=== PATIENT | male | born 1960 | race African-American/Black ===

== ENCOUNTER 2019-10-28 14:20 | Inpatient (IN) | payer OTHER ==
[2019-10-28 15:12] VITALS: BMI 29.7
--- NOTE | 2019-10-28 16:40 | HP ---
CIWA Score Nausea/Vomitin Muscle Tremors: 3 Anxiety: 3 Agitation: 3 Paroxysmal Sweats: 1-Minimal Palms Moist Orientation: 0-Oriented Tacttile Disturbances: 1-Very Mild Itch/Numbness Auditory Disturbances: 0-None Visual Disturbances: 0-None Headache: 2-Mild CIWA-Ar Total Score: 15 - Admission Criteria [facility]ASAS Guidelines: Admission for Medically Managed Detox: Requires at least one of the followin. CIWA greater than 12 2. Seizures within the past 24 hours 3. Delirium tremens within the past 24 hours 4. Hallucinations within the past 24 hours 5. Acute intervention needed for co occurring medical disorder 6. Acute intervention needed for co occurring psychiatric disorder 7. Severe withdrawal that cannot be handled at a lower level of care (continued vomiting, continued diarrhea, abnormal vital signs) requiring intravenous medication and/or fluids 8. Admitting History and Physical - Admission Chief Complaint: i need help to stop using alcohol History of Present Illness: this 59 years old male with alcohol dependence,seeking detox withdrawal symptom, last detox ACR in the [facility] not complete left facility on Tuesday' multiple admission in detox,last detox complete [facility] syncope alcohol related denied seizure hypertension on med non compliance nicotine dependence 1 pack/day no significant period of sobriety homeless plan for rehab after detox History Source: Patient Limitations to Obtaining History: No Limitations - Past Medical History Cardiovascular: Yes: HTN - Past Surgical History Past Surgical History: Yes: None - Smoking History Smoking history: Current every day smoker Have you smoked in the past 12 months: Yes Aproximately how many cigarettes per day: 20 - Alcohol/Substance Use Hx Alcohol Use: Yes History of Substance Use: reports: Cocaine - Social History Usual Living Arrangement: Yes: Other (homeless) Occupation: unemployed History of Recent Travel: No Other Social History: homeless,smoke 1 pack/day,unemployed Admission ROS [facility] - HPI Chief Complaint: i need help to stop drinking alcohol Allergies/Adverse Reactions: Allergies Allergy/AdvReac Type Severity Reaction Status Date / Time lisinopril Allergy Verified 10/28/19 14:53 History of Present Illness: this 59 years old male with alcohol dependence,cocaine abused,seeking detox, withdrawal symptom, stated was in detox in other facility but not satisfied with the treatment and left the facility, has been on drinking had syncope no seizure smoke 1 pack/day no significant period of sobriety plan for rehab after detox - Ebola screening Have you traveled outside of the country in the last 21 days: No Have you had contact with anyone from an Ebola affected area: No - Review of Systems Constitutional: Loss of Appetite, Malaise, Night Sweats, Changes in sleep, Weakness, Unintentional Wgt. Loss EENT: reports: Nose Congestion Respiratory: reports: No Symptoms reported Cardiac: reports: No Symptoms Reported GI: reports: Nausea, Poor Appetite, Poor Fluid Intake, Abdominal cramping : reports: No Symptoms Reported Musculoskeletal: reports: Back Pain, Muscle Pain Integumentary: reports: Dryness Endocrine: reports: No Symptoms Reported Hematology: reports: No Symptoms Reported Psychiatric: reports: No Sypmtoms Reported, Judgement Intact, Mood/Affect Appropiate, Orientated x3 Other Systems: Reviewed and Negative Patient History - Patient Medical History Hx Anemia: No Hx Asthma: No Hx Chronic Obstructive Pulmonary Disease (COPD): No Hx Cancer: No Hx Cardiac Disorders: No Hx Congestive Heart Failure: No Hx Hypertension: Yes (non compliance with med) Hx Hypercholesterolemia: No Hx Pacemaker: No HX Cerebrovascular Accident: No Hx Seizures: No Hx Dementia: No Hx Diabetes: No Hx Gastrointestinal Disorders: No Hx Liver Disease: No Hx Genitourinary Disorders: No Hx Sexually Transmitted Disorders: No Hx Renal Disease (ESRD): No Hx Thyroid Disease: No Hx Human Immunodeficiency Virus (HIV): No (last 2019 negative) Hx Hepatitis C: No Hx Depression: No Hx Suicide Attempt: No Hx Bipolar Disorder: No Hx Schizophrenia: No Other Medical History: no suicidal,no homicidal - Patient Surgical History Past Surgical History: No - PPD History Previous Implant?: Yes Documented Results: Positive w/o proof Implanted On Prior R Admission?: No PPD to be Administered?: No - Smoking Cessation Smoking history: Current every day smoker Have you smoked in the past 12 months: Yes Aproximately how many cigarettes per day: 20 Cigars Per Day: 0 Hx Chewing Tobacco Use: No Initiated information on smoking cessation: Yes 'Breaking Loose' booklet given: 10/28/19 - Substance & Tx. History Hx Alcohol Use: Yes Hx Substance Use: No Substance Use Type: Alcohol, Cocaine Hx Substance Use Treatment: Yes (last week not completed left the facility) - Substances abused Alcohol Substance route: Oral Frequency: Daily Amount used: 3 pints of vodka Age of first use: 17 Date of last use: 10/28/19 Cocaine Substance route: Smoking Frequency: 1-3 times last 30 days Amount used: 20$ Age of first use: 17 Date of last use: 10/26/19 Admission Physical Exam [facility] - Vital Signs Vital Signs: Vital Signs - 24 hr 10/28/19 15:04 Temperature 98.1 F Pulse Rate 102 H Respiratory 18 Rate Blood Pressure 149/89 - Physical General Appearance: Yes: Moderate Distress, Tremorous, Irritable, Sweating, Anxious HEENTM: Yes: Normal ENT Inspection, KEVIN, Pharynx Normal Respiratory: Yes: Lungs Clear, Normal Breath Sounds, No Respiratory Distress Neck: Yes: Within Normal Limits, Supple Breast: Yes: Within Normal Limits Cardiology: Yes: Within Normal Limits, Regular Rhythm, Regular Rate, S1, S2 Abdominal: Yes: Within Normal Limits, Normal Bowel Sounds, Non Tender, Flat, Soft Genitourinary: Yes: Within Normal Limits Back: Yes: Muscle Spasm Extremities: Yes: Within Normal Limits, Normal Range of Motion, Tremors 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: 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, Fully Oriented, Alert, Motor Strength 5/5 Integumentary: Yes: Dry Lymphatic: Yes: Within Normal Limits - Diagnostic (1) Alcohol dependence with uncomplicated intoxication Current Visit: Yes Status: Acute (2) Alcohol dependence with uncomplicated withdrawal Current Visit: Yes Status: Acute (3) Syncope Current Visit: Yes Status: Acute (4) Essential hypertension Current Visit: Yes Status: Acute (5) Nicotine dependence Current Visit: Yes Status: Acute (6) Cocaine abuse Current Visit: Yes Status: Acute Cleared for Admission [facility] - Detox or Rehab [facility] Level of Care: Medically Managed (ativan regimen) Breathalyzer - Breathalyzer Breathalyzer: 0 Inpatient Rehab Admission - Rehab Decision to Admit Inpatient rehab admission?: No
[2019-10-28] MEDS ORDERED: LORazepam 1 MG TABLET PO PRN (16:56)
[2019-10-28] MEDS ORDERED: MAG HYDROX/AL HYDROX/SIMETH 30 ML UNIT-DOSE CUP PO PRN (16:56)
[2019-10-28] MEDS ORDERED: METHOCARBAMOL 500 MG TABLET PO PRN (16:56)
[2019-10-28] MEDS ORDERED: BISMUTH SUBSALICYLATE 524 MG/30 ML UD PO PRN (16:56)
[2019-10-28] MEDS ORDERED: MENTHOL/PHENOL 1 EACH UD MM PRN (16:56)
[2019-10-28] MEDS ORDERED: MAGNESIUM HYDROX 2400MG/30ML ORAL SUSPENSION 30 ML CUP PO PRN (16:56)
[2019-10-28] MEDS ORDERED: MELATONIN 5 MG TABLETS PO PRN (16:56)
[2019-10-28] MEDS ORDERED: NICOTINE POLACRILEX 2 MG GUM BUC PRN (16:56)
[2019-10-28] MEDS ORDERED: hydrOXYzine PAMOATE 25 MG CAPSULE (FP) PO PRN (16:56)
[2019-10-28] MEDS ORDERED: ACETAMINOPHEN 325 MG TABLET (FP) PO PRN ×2 (16:56)
[2019-10-28] MEDS ORDERED: IBUPROFEN 400 MG TABLET (FP) PO PRN (16:56)
[2019-10-28] MEDS ORDERED: MAGNESIUM CITRATE 300 ML BOTTLE PO PRN (16:56)
[2019-10-28] MEDS: THIAMINE HCL 100 MG TABLET (FP) PO SCH (22:10)
[2019-10-28] MEDS: ATORVASTATIN CA 10 MG TABLET (FP) PO SCH (22:10)
[2019-10-28] MEDS: LORazepam 2 MG TABLET PO SCH (22:10)
[2019-10-29] MEDS: LORazepam 2 MG TABLET PO SCH ×4 (05:31→22:17)
--- NOTE | 2019-10-29 10:02 | PN ---
[facility] CIWA - CIWA Score Nausea/Vomitin-Mild Nausea/No Vomiting Muscle Tremors: 4-Moderate,w/Arms Extend Anxiety: 3 Agitation: 2 Paroxysmal Sweats: 2 Orientation: 0-Oriented Tacttile Disturbances: 1-Very Mild Itch/Numbness Auditory Disturbances: 0-None Visual Disturbances: 0-None Headache: 1-Very Mild CIWA-Ar Total Score: 14 [facility] Progress Note (SOAP) Subjective: 59 years old male admitted on 10/28/19 for alcohol withdrawal sx management treated with ativan detox regimen sitting on the edge of the bed eating breakfast no trouble chewing swallowing speech clearly Objective: 10/29/19 10:10 Vital Signs Temperature 97.5 F L 10/29/19 09:03 Pulse Rate 86 10/29/19 09:03 Respiratory Rate 18 10/29/19 09:03 Blood Pressure 168/97 10/29/19 09:03 O2 Sat by Pulse Oximetry (%) 10/29/19 10:10 lab pending Assessment: 10/29/19 10:11 alcohol withdrawal sx Plan: ativan detox regimen
[2019-10-29] MEDS: amLODIPine BESYLATE 10 MG TABLET (FP) PO SCH (10:06)
[2019-10-29] MEDS: HYDROCHLOROTHIAZIDE 12.5 MG CAPSULE (FP) PO SCH (10:06)
[2019-10-29] MEDS: ASPIRIN COATED 81 MG TABLET.EC PO SCH (10:06)
[2019-10-29] MEDS: PRENATAL VITAMINS W/ FOLIC ACID TABLET (FP) PO SCH (10:06)
[2019-10-29] MEDS: NICOTINE 21 MG/24 HOURS TOPICAL PATCH TD SCH (10:06)
[2019-10-29 10:58] LABS: HEMATOCRIT 37.1 % (35.4-49); HEMOGLOBIN 12.3 GM/dL (11.7-16.9); MCH 32.1 pg (25.7-33.7); MEAN CELL VOLUME 97.4 fl (80-96); MEAN PLT VOLUME 8.8 fl (7.5-11.1); PLATELET COUNT 146 K/MM3 (134-434); RBC 3.81 M/mm3 (4.00-5.60); RDW 17.3 % (11.9-15.9); WHITE BLOOD COUNT 6.1 K/mm3 (4.0-10.0)
[2019-10-29 11:12] LABS: BILIRUBIN,TOTAL 0.5 mg/dL (0.2-1); BLOOD UREA NITROGEN 16.9 mg/dL (7-18); CALCIUM 8.6 mg/dL (8.5-10.1); CREATININE 1.2 mg/dL (0.55-1.3)
[2019-10-29 11:55] LABS: SICKLE CELL SCREEN NEGATIVE (NEGATIVE)
--- NOTE | 2019-10-29 13:43 | EKG ---
Test Reason : Blood Pressure : / mmHG Vent. Rate : 095 BPM Atrial Rate : 095 BPM P-R Int : 148 ms QRS Dur : 084 ms QT Int : 396 ms P-R-T Axes : 055 051 065 degrees QTc Int : 497 ms NORMAL SINUS RHYTHM PROLONGED QT ABNORMAL ECG NO PREVIOUS ECGS AVAILABLE Confirmed by KLEVER HAMILTON MD ([id number]) on 10/29/2019 1:43:26 PM Referred By: SHRUTHI Confirmed By:KLEVER HAMILTON MD
[2019-10-29 19:25] LABS: HYALINE CASTS 5 /lpf (0-8); URINE APPEARANCE CLEAR; URINE BACTERIA 2.6 /hpf (NEGATIVE); URINE BILIRUBIN NEGATIVE (NEGATIVE); URINE COLOR YELLOW; URINE GLUCOSE (UA) NEGATIVE (NEGATIVE); URINE KETONE TRACE (NEGATIVE); URINE LEUK ESTERASE NEGATIVE (NEGATIVE); URINE NITRITE NEGATIVE (NEGATIVE); URINE PROTEIN 1+ (NEGATIVE); URINE RBC 1 /hpf (0-4); URINE WBC 0 /hpf (0-5)
[2019-10-29] MEDS: THIAMINE HCL 100 MG TABLET (FP) PO SCH (22:14)
[2019-10-29] MEDS: ATORVASTATIN CA 10 MG TABLET (FP) PO SCH (22:14)
[2019-10-30] MEDS: LORazepam 1 MG TABLET PO SCH ×4 (05:55→22:14)
[2019-10-30] MEDS: HYDROCHLOROTHIAZIDE 12.5 MG CAPSULE (FP) PO SCH (10:07)
[2019-10-30] MEDS: ASPIRIN COATED 81 MG TABLET.EC PO SCH (10:07)
[2019-10-30] MEDS: PRENATAL VITAMINS W/ FOLIC ACID TABLET (FP) PO SCH (10:07)
[2019-10-30] MEDS: amLODIPine BESYLATE 10 MG TABLET (FP) PO SCH (10:07)
[2019-10-30] MEDS: NICOTINE 21 MG/24 HOURS TOPICAL PATCH TD SCH (10:09)
[2019-10-30] MEDS ORDERED: cloNIDine HCL 0.1 MG TABLET PO PRN (14:37)
--- NOTE | 2019-10-30 14:39 | PN ---
S CIWA - CIWA Score Nausea/Vomitin-Mild Nausea/No Vomiting Muscle Tremors: 3 Anxiety: 2 Agitation: 1-Slight > Activity Paroxysmal Sweats: 2 Orientation: 0-Oriented Tacttile Disturbances: 1-Very Mild Itch/Numbness Auditory Disturbances: 0-None Visual Disturbances: 0-None Headache: 2-Mild CIWA-Ar Total Score: 12 S Progress Note (SOAP) Subjective: 59 years old male admitted on 10/28/19 for alcohol withdrawal sx management treated with ativan detox regimen ambulating on hallway social with peers in day room discuss aftercare with staff Objective: 10/30/19 14:36 Vital Signs Temperature 99.3 F 10/30/19 13:35 Pulse Rate 89 10/30/19 13:35 Respiratory Rate 18 10/30/19 13:35 Blood Pressure 156/95 10/30/19 13:35 O2 Sat by Pulse Oximetry (%) Laboratory Last Values WBC 6.1 K/mm3 (4.0-10.0) 10/29/19 07:50 RBC 3.81 M/mm3 (4.00-5.60) L 10/29/19 07:50 Hgb 12.3 GM/dL (11.7-16.9) 10/29/19 07:50 Hct 37.1 % (35.4-49) 10/29/19 07:50 MCV 97.4 fl (80-96) H 10/29/19 07:50 MCH 32.1 pg (25.7-33.7) 10/29/19 07:50 MCHC 33.0 g/dl (32.0-35.9) 10/29/19 07:50 RDW 17.3 % (11.9-15.9) H 10/29/19 07:50 Plt Count 146 K/MM3 (134-434) 10/29/19 07:50 MPV 8.8 fl (7.5-11.1) 10/29/19 07:50 Sickle Cell Screen Negative (NEGATIVE) 10/29/19 07:50 Sodium 139 mmol/L (136-145) 10/29/19 07:50 Potassium 4.0 mmol/L (3.5-5.1) 10/29/19 07:50 Chloride 105 mmol/L (98-107) 10/29/19 07:50 Carbon Dioxide 27 mmol/L (21-32) 10/29/19 07:50 Anion Gap 7 MMOL/L (8-16) L 10/29/19 07:50 BUN 16.9 mg/dL (7-18) 10/29/19 07:50 Creatinine 1.2 mg/dL (0.55-1.3) 10/29/19 07:50 Est GFR (CKD-EPI)AfAm 76.79 10/29/19 07:50 Est GFR (CKD-EPI)NonAf 66.26 10/29/19 07:50 Random Glucose 92 mg/dL (74-106) 10/29/19 07:50 Calcium 8.6 mg/dL (8.5-10.1) 10/29/19 07:50 Total Bilirubin 0.5 mg/dL (0.2-1) 10/29/19 07:50 AST 45 U/L (15-37) H 10/29/19 07:50 ALT 35 U/L (13-61) 10/29/19 07:50 Alkaline Phosphatase 81 U/L (45-117) 10/29/19 07:50 Total Protein 6.0 g/dl (6.4-8.2) L 10/29/19 07:50 Albumin 3.0 g/dl (3.4-5.0) L 10/29/19 07:50 Urine Color Yellow 10/29/19 11:25 Urine Appearance Clear 10/29/19 11:25 Urine pH 7.0 (5.0-8.0) 10/29/19 11:25 Ur Specific [place] 1.030 (1.010-1.035) 10/29/19 11:25 Urine Protein 1+ (NEGATIVE) H 10/29/19 11:25 Urine Glucose (UA) Negative (NEGATIVE) 10/29/19 11:25 Urine Ketones Trace (NEGATIVE) H 10/29/19 11:25 Urine Blood Negative (NEGATIVE) 10/29/19 11:25 Urine Nitrite Negative (NEGATIVE) 10/29/19 11:25 Urine Bilirubin Negative (NEGATIVE) 10/29/19 11:25 Urine Urobilinogen 1.0 mg/dL (0.2-1.0) 10/29/19 11:25 Ur Leukocyte Esterase Negative (NEGATIVE) 10/29/19 11:25 Urine WBC (Auto) 0 /hpf (0-5) 10/29/19 11:25 Urine RBC (Auto) 1 /hpf (0-4) 10/29/19 11:25 Urine Casts (Auto) 5 /lpf (0-8) 10/29/19 11:25 U Epithel Cells (Auto) 1.0 /HPF (0-5/HPF) 10/29/19 11:25 Urine Bacteria (Auto) 2.6 /hpf (NEGATIVE) 10/29/19 11:25 RPR Titer Nonreactive (NONREACTIVE) 10/29/19 07:50 long history of hypertension increased hctz to 25 mg po daily additional clonidine 0.1mg po q6h prn lab noted 10/30/19 14:38 Assessment: 10/30/19 14:39 alcohol withdrawal sx Plan: ativan regimen
[2019-10-30] MEDS: HYDROCHLOROTHIAZIDE 25 MG TABLET (FP) PO SCH (15:33)
[2019-10-30] MEDS: ATORVASTATIN CA 10 MG TABLET (FP) PO SCH (22:13)
[2019-10-30] MEDS: THIAMINE HCL 100 MG TABLET (FP) PO SCH (22:14)
[2019-10-31] MEDS ORDERED: LORazepam 0.5 MG TABLET PO PRN
[2019-10-31] MEDS ORDERED: LORazepam 0.5 MG TABLET PO SCH (05:00)
[2019-10-31 09:15] VITALS: BP 146/79; PULSE 89; TEMP 97.1
[2019-10-31] MEDS: amLODIPine BESYLATE 10 MG TABLET (FP) PO SCH (10:30)
[2019-10-31] MEDS: HYDROCHLOROTHIAZIDE 25 MG TABLET (FP) PO SCH (10:30)
[2019-10-31] MEDS: ASPIRIN COATED 81 MG TABLET.EC PO SCH (10:30)
[2019-10-31] MEDS: NICOTINE 21 MG/24 HOURS TOPICAL PATCH TD SCH (10:31)
[2019-10-31] MEDS: PRENATAL VITAMINS W/ FOLIC ACID TABLET (FP) PO SCH (10:31)
--- NOTE | 2019-10-31 12:30 | DS ---
[facility] Detox Discharge Summary Admission Date: 10/28/19 Discharge Date: 10/31/19 - History Present History: Alcohol Dependence Additional Comments: 59 years old male admitted on 10/28/19 for alcohol withdrawal sx management treated with ativan detox regimen feeling better today alert oriented x 3 no acute distress ambulating on hallway steady gait speech clearly coherently cardiac s1s2 regular rate rhythm respiratory clear lung bilaterally on auscultation skin warm and dry Pertinent Past History: patient prefers to leave the detox one day earlier than estimated discharge date of 11/01/19 that he needs to visit his deputy probation officer today - Physical Exam Results Vital Signs: Vital Signs Temperature 97.1 F L 10/31/19 09:15 Pulse Rate 89 10/31/19 09:15 Respiratory Rate 18 10/31/19 09:15 Blood Pressure 146/79 10/31/19 09:15 O2 Sat by Pulse Oximetry (%) Pertinent Admission Physical Exam Findings: alcohol withdrawal sx Laboratory Last Values WBC 6.1 K/mm3 (4.0-10.0) 10/29/19 07:50 RBC 3.81 M/mm3 (4.00-5.60) L 10/29/19 07:50 Hgb 12.3 GM/dL (11.7-16.9) 10/29/19 07:50 Hct 37.1 % (35.4-49) 10/29/19 07:50 MCV 97.4 fl (80-96) H 10/29/19 07:50 MCH 32.1 pg (25.7-33.7) 10/29/19 07:50 MCHC 33.0 g/dl (32.0-35.9) 10/29/19 07:50 RDW 17.3 % (11.9-15.9) H 10/29/19 07:50 Plt Count 146 K/MM3 (134-434) 10/29/19 07:50 MPV 8.8 fl (7.5-11.1) 10/29/19 07:50 Sickle Cell Screen Negative (NEGATIVE) 10/29/19 07:50 Sodium 139 mmol/L (136-145) 10/29/19 07:50 Potassium 4.0 mmol/L (3.5-5.1) 10/29/19 07:50 Chloride 105 mmol/L (98-107) 10/29/19 07:50 Carbon Dioxide 27 mmol/L (21-32) 10/29/19 07:50 Anion Gap 7 MMOL/L (8-16) L 10/29/19 07:50 BUN 16.9 mg/dL (7-18) 10/29/19 07:50 Creatinine 1.2 mg/dL (0.55-1.3) 10/29/19 07:50 Est GFR (CKD-EPI)AfAm 76.79 10/29/19 07:50 Est GFR (CKD-EPI)NonAf 66.26 10/29/19 07:50 Random Glucose 92 mg/dL (74-106) 10/29/19 07:50 Calcium 8.6 mg/dL (8.5-10.1) 10/29/19 07:50 Total Bilirubin 0.5 mg/dL (0.2-1) 10/29/19 07:50 AST 45 U/L (15-37) H 10/29/19 07:50 ALT 35 U/L (13-61) 10/29/19 07:50 Alkaline Phosphatase 81 U/L (45-117) 10/29/19 07:50 Total Protein 6.0 g/dl (6.4-8.2) L 10/29/19 07:50 Albumin 3.0 g/dl (3.4-5.0) L 10/29/19 07:50 Urine Color Yellow 10/29/19 11:25 Urine Appearance Clear 10/29/19 11:25 Urine pH 7.0 (5.0-8.0) 10/29/19 11:25 Ur Specific [place] 1.030 (1.010-1.035) 10/29/19 11:25 Urine Protein 1+ (NEGATIVE) H 10/29/19 11:25 Urine Glucose (UA) Negative (NEGATIVE) 10/29/19 11:25 Urine Ketones Trace (NEGATIVE) H 10/29/19 11:25 Urine Blood Negative (NEGATIVE) 10/29/19 11:25 Urine Nitrite Negative (NEGATIVE) 10/29/19 11:25 Urine Bilirubin Negative (NEGATIVE) 10/29/19 11:25 Urine Urobilinogen 1.0 mg/dL (0.2-1.0) 10/29/19 11:25 Ur Leukocyte Esterase Negative (NEGATIVE) 10/29/19 11:25 Urine WBC (Auto) 0 /hpf (0-5) 10/29/19 11:25 Urine RBC (Auto) 1 /hpf (0-4) 10/29/19 11:25 Urine Casts (Auto) 5 /lpf (0-8) 10/29/19 11:25 U Epithel Cells (Auto) 1.0 /HPF (0-5/HPF) 10/29/19 11:25 Urine Bacteria (Auto) 2.6 /hpf (NEGATIVE) 10/29/19 11:25 RPR Titer Nonreactive (NONREACTIVE) 10/29/19 07:50 lab noted - Treatment Hospital Course: Detox Protocol Followed, Detoxed Safely, Responded well, Discharged Condition Good, Rehab Referral Accepted Patient has Accepted a Rehab Referral to: community support approach - Medication Discharge Medications: Ambulatory Orders Amlodipine Besylate 10 mg PO DAILY 10/28/19 Aspirin [Aspirin EC] 81 mg PO DAILY 10/28/19 Atorvastatin Ca [Lipitor] 10 mg PO HS 10/28/19 Hydrochlorothiazide [Hctz -] 12.5 mg PO DAILY 10/28/19 - Diagnosis (1) Alcohol dependence with uncomplicated intoxication Status: Acute (2) Essential hypertension Status: Chronic (3) Nicotine dependence Status: Acute Qualifiers: Nicotine product type: cigarettes Substance use status: in withdrawal Qualified Code(s): F17.213 - Nicotine dependence, cigarettes, with withdrawal - AMA Did Patient Leave Against Medical Advice: No CIWA Score - CIWA Score Nausea/Vomitin-No Nausea/No Vomiting Muscle Tremors: 2 Anxiety: 1-Mildly Anxious Agitation: 0-Normal Activity Paroxysmal Sweats: 1-Minimal Palms Moist Orientation: 0-Oriented Tacttile Disturbances: 1-Very Mild Itch/Numbness Auditory Disturbances: 0-None Visual Disturbances: 0-None Headache: 2-Mild CIWA-Ar Total Score: 7
[2019-11-01] MEDS ORDERED: LORazepam 0.5 MG TABLET PO ONE (05:00)
== END 2019-10-31 10:44 | disposition home or self-care (01) | DRG 774 ==
LOC: YASAS 14:20 → Y3N 17:14
PROVIDERS: ADMIT Allergy & Immunology; ATTEND Allergy & Immunology
PROC: HZ2ZZZZ Detoxification Services for Substance Abuse Treatment (ICD-10-PCS; principal; 2019-10-28)
DX: F10.230 Alcohol dependence with withdrawal, uncomplicated (principal); F10.220 Alcohol dependence with intoxication, uncomplicated; F14.10 Cocaine abuse, uncomplicated; F17.213 Nicotine dependence, cigarettes, with withdrawal; I10 Essential (primary) hypertension; R55 Syncope and collapse; Z59.0 Homelessness; Z88.8 Allergy status to other drugs, medicaments and biological substances
CPT/HCPCS: 36415; 71046-TC-FY; 80053; 81003; 85027; 85660; 86593; 93005; 93010; J0735

== ENCOUNTER 2023-03-25 12:16 | Inpatient (IN) | payer OTHER ==
[2023-03-25 13:55] VITALS: BMI 26.6
[2023-03-25] MEDS ORDERED: COLLOIDAL OATMEAL 1 BAR EACH TP PRN (14:45)
[2023-03-25] MEDS ORDERED: IBUPROFEN 600 MG TABLET (FP) PO PRN (14:45)
[2023-03-25] MEDS ORDERED: BENZONATATE 200 MG CAPSULE PO PRN (14:45)
[2023-03-25] MEDS ORDERED: P-EPHED 60MG/TRIPROLIDI 2.5MG TABLET PO PRN (14:45)
[2023-03-25] MEDS ORDERED: POLYETHYLENE GLYCOL (HEALTHYLAX) 3350 17 GM PACKET PO PRN (14:45)
[2023-03-25] MEDS ORDERED: MAGNESIUM HYDROX 2400MG/30ML ORAL SUSPENSION 30 ML CUP PO PRN (14:45)
[2023-03-25] MEDS ORDERED: ACETAMINOPHEN 325 MG TABLET (FP) PO PRN (14:45)
[2023-03-25] MEDS ORDERED: AMMONIUM LACTATE 12% LOTION 225 GM BOTTLE TP PRN (14:45)
[2023-03-25] MEDS ORDERED: BENZOCAINE/MENTHOL (CHLORASEPTIC ) LOZENGE MM PRN (14:45)
[2023-03-25] MEDS ORDERED: NICOTINE POLACRILEX 2 MG GUM BUC PRN (14:45)
[2023-03-25] MEDS ORDERED: TUBERCULIN PPD 5 TU/0.1ML SYRINGE (IN PATIENT USE ONLY) ID ONE (14:45)
[2023-03-25] MEDS ORDERED: IBUPROFEN 400 MG TABLET (FP) PO PRN (14:45)
[2023-03-25] MEDS ORDERED: LOPERAMIDE HCL 2 MG CAPSULE PO PRN (14:45)
[2023-03-25] MEDS ORDERED: guaiFENesin 600 MG TABLET.ER (FP) PO PRN (14:45)
[2023-03-25] MEDS: ATORVASTATIN CA 10 MG TABLET (FP) PO SCH (21:51)
[2023-03-25] MEDS: ASPIRIN COATED 81 MG TABLET.EC PO SCH (21:52)
[2023-03-25] MEDS: THIAMINE HCL 100 MG TABLET (FP) PO SCH (21:52)
[2023-03-25] MEDS: amLODIPine BESYLATE 10 MG TABLET (FP) PO SCH (21:52)
[2023-03-25] MEDS: MELATONIN 5 MG TABLETS PO PRN (21:52)
[2023-03-25] MEDS: MAG HYDROX/AL HYDROX/SIMETH 30 ML UNIT-DOSE CUP PO PRN (21:55)
[2023-03-26] MEDS ORDERED: HYDROCHLOROTHIAZIDE 12.5 MG CAPSULE (FP) PO SCH (10:00)
[2023-03-26] MEDS ORDERED: chlordiazePOXIDE HCL 25 MG CAPSULE PO PRN (10:12)
[2023-03-26 10:54] LABS: POTASSIUM 4.9 mmol/L (3.5-5.1)
[2023-03-26] MEDS: PRENATAL VITAMINS W/ FOLIC ACID TABLET (FP) PO SCH (10:56)
[2023-03-26] MEDS: chlordiazePOXIDE HCL 25 MG CAPSULE PO SCH ×3 (10:56→22:46)
[2023-03-26] MEDS: amLODIPine BESYLATE 10 MG TABLET (FP) PO SCH (10:56)
[2023-03-26] MEDS: ASPIRIN COATED 81 MG TABLET.EC PO SCH (10:56)
[2023-03-26 10:57] LABS: HEMATOCRIT 34.8 % (35.4-49); HEMOGLOBIN 12.2 GM/dL (11.7-16.9); MCHC 35.2 g/dl (32.0-35.9); MEAN CELL VOLUME 99.6 fl (80-96); PLATELET COUNT 158 10^3/uL (134-434); RDW 13.5 % (11.9-15.9)
[2023-03-26 10:58] LABS: CALCIUM 8.4 mg/dL (8.5-10.1)
[2023-03-26 10:59] LABS: ALBUMIN 2.5 g/dl (3.4-5.0)
[2023-03-26 11:00] LABS: BLOOD UREA NITROGEN 32.4 mg/dL (7-18)
[2023-03-26 11:03] LABS: CREATININE 1.8 mg/dL (0.55-1.3)
[2023-03-26 11:04] LABS: TOT PROT 5.2 g/dl (6.4-8.2)
[2023-03-26 11:07] LABS: BILIRUBIN,TOTAL 0.4 mg/dL (0.2-1)
[2023-03-26 12:23] LABS: HIV INTERPRETATION NEGATIVE (NEGATIVE); SYPHILIS W/ RPR CONF REACTIVE (NONREACTIVE)
[2023-03-26] MEDS ORDERED: APIXABAN 5 MG TABLET PO SCH (17:30)
[2023-03-26] MEDS: CLOPIDOGREL BISULFATE 75 MG TABLET (FP) PO SCH (18:41)
[2023-03-26] MEDS: APIXABAN 5 MG TABLET PO SCH (22:45)
[2023-03-26] MEDS: ATORVASTATIN CA 10 MG TABLET (FP) PO SCH (22:46)
[2023-03-26] MEDS: THIAMINE HCL 100 MG TABLET (FP) PO SCH (22:46)
[2023-03-26] MEDS: MELATONIN 5 MG TABLETS PO PRN (22:46)
[2023-03-27] MEDS: chlordiazePOXIDE HCL 25 MG CAPSULE PO SCH ×4 (05:37→22:10)
[2023-03-27] MEDS: PRENATAL VITAMINS W/ FOLIC ACID TABLET (FP) PO SCH (10:31)
[2023-03-27] MEDS: CLOPIDOGREL BISULFATE 75 MG TABLET (FP) PO SCH (10:31)
[2023-03-27] MEDS: amLODIPine BESYLATE 10 MG TABLET (FP) PO SCH (10:31)
[2023-03-27] MEDS: APIXABAN 5 MG TABLET PO SCH ×2 (10:32→22:09)
[2023-03-27] MEDS: TORSEMIDE 20 MG TABLET (FP) PO SCH (10:32)
[2023-03-27] MEDS: EZETIMIBE 10 MG TABLET (FP) PO SCH (10:36)
[2023-03-27] MEDS: MELATONIN 5 MG TABLETS PO PRN (22:08)
[2023-03-27] MEDS: ATORVASTATIN CA 10 MG TABLET (FP) PO SCH (22:09)
[2023-03-27] MEDS: THIAMINE HCL 100 MG TABLET (FP) PO SCH (22:09)
[2023-03-28] MEDS: chlordiazePOXIDE HCL 25 MG CAPSULE PO SCH ×4 (05:21→22:19)
[2023-03-28] MEDS: CLOPIDOGREL BISULFATE 75 MG TABLET (FP) PO SCH (10:32)
[2023-03-28] MEDS: TORSEMIDE 20 MG TABLET (FP) PO SCH (10:32)
[2023-03-28] MEDS: PRENATAL VITAMINS W/ FOLIC ACID TABLET (FP) PO SCH (10:32)
[2023-03-28] MEDS: amLODIPine BESYLATE 10 MG TABLET (FP) PO SCH (10:33)
[2023-03-28] MEDS: APIXABAN 5 MG TABLET PO SCH ×2 (10:35→22:20)
[2023-03-28] MEDS: EZETIMIBE 10 MG TABLET (FP) PO SCH (10:36)
[2023-03-28] MEDS ORDERED: APIXABAN 2.5 MG TABLET PO SCH (12:04)
[2023-03-28] MEDS: ATORVASTATIN CA 10 MG TABLET (FP) PO SCH (22:20)
[2023-03-28] MEDS: THIAMINE HCL 100 MG TABLET (FP) PO SCH (22:20)
[2023-03-29] MEDS ORDERED: chlordiazePOXIDE HCL 10 MG CAPSULE PO PRN
[2023-03-29] MEDS: chlordiazePOXIDE HCL 10 MG CAPSULE PO SCH ×4 (05:29→22:20)
[2023-03-29] MEDS: TORSEMIDE 20 MG TABLET (FP) PO SCH (10:22)
[2023-03-29] MEDS: EZETIMIBE 10 MG TABLET (FP) PO SCH (10:22)
[2023-03-29] MEDS: PRENATAL VITAMINS W/ FOLIC ACID TABLET (FP) PO SCH (10:22)
[2023-03-29] MEDS: APIXABAN 5 MG TABLET PO SCH ×2 (10:22→22:18)
[2023-03-29] MEDS: amLODIPine BESYLATE 10 MG TABLET (FP) PO SCH (10:22)
[2023-03-29 11:59] LABS: POTASSIUM 3.7 mmol/L (3.5-5.1)
[2023-03-29 12:07] LABS: CREATININE 1.6 mg/dL (0.55-1.3)
[2023-03-29 12:09] LABS: BILIRUBIN,TOTAL 0.2 mg/dL (0.2-1); TOT PROT 5.8 g/dl (6.4-8.2)
[2023-03-29 12:12] LABS: BLOOD UREA NITROGEN 23.2 mg/dL (7-18)
[2023-03-29 12:13] LABS: ALBUMIN 2.6 g/dl (3.4-5.0)
[2023-03-29 12:14] LABS: CALCIUM 8.7 mg/dL (8.5-10.1)
[2023-03-29] MEDS: ATORVASTATIN CA 10 MG TABLET (FP) PO SCH (22:18)
[2023-03-29] MEDS: THIAMINE HCL 100 MG TABLET (FP) PO SCH (22:18)
[2023-03-30] MEDS: chlordiazePOXIDE HCL 10 MG CAPSULE PO SCH ×2 (05:56→17:28)
[2023-03-30] MEDS: APIXABAN 5 MG TABLET PO SCH ×2 (10:26→22:16)
[2023-03-30] MEDS: PRENATAL VITAMINS W/ FOLIC ACID TABLET (FP) PO SCH (10:26)
[2023-03-30] MEDS: amLODIPine BESYLATE 10 MG TABLET (FP) PO SCH (10:26)
[2023-03-30] MEDS: EZETIMIBE 10 MG TABLET (FP) PO SCH (10:27)
[2023-03-30] MEDS: TORSEMIDE 20 MG TABLET (FP) PO SCH (10:27)
[2023-03-30] MEDS: MAG HYDROX/AL HYDROX/SIMETH 30 ML UNIT-DOSE CUP PO PRN (19:46)
[2023-03-30] MEDS: THIAMINE HCL 100 MG TABLET (FP) PO SCH (22:15)
[2023-03-30] MEDS: ATORVASTATIN CA 10 MG TABLET (FP) PO SCH (22:15)
[2023-03-31] MEDS ORDERED: chlordiazePOXIDE HCL 10 MG CAPSULE PO ONE (05:00)
[2023-03-31 06:08] VITALS: RESP 16
[2023-03-31 09:11] VITALS: BP 123/62; PULSE 73; TEMP 97.7
[2023-03-31] MEDS: PRENATAL VITAMINS W/ FOLIC ACID TABLET (FP) PO SCH (10:28)
[2023-03-31] MEDS: TORSEMIDE 20 MG TABLET (FP) PO SCH (10:29)
[2023-03-31] MEDS: APIXABAN 5 MG TABLET PO SCH (10:29)
[2023-03-31] MEDS: EZETIMIBE 10 MG TABLET (FP) PO SCH (10:29)
[2023-03-31] MEDS: amLODIPine BESYLATE 10 MG TABLET (FP) PO SCH (10:29)
== END 2023-03-31 12:15 | disposition home or self-care (01) | DRG 774 ==
LOC: YASAS 12:16 → UNDOADMIN 16:14 → Y3N 16:14
PROVIDERS: ADMIT Allergy & Immunology; ATTEND Surgery
PROC: HZ2ZZZZ Detoxification Services for Substance Abuse Treatment (ICD-10-PCS; principal; 2023-03-25)
DX: F10.230 Alcohol dependence with withdrawal, uncomplicated (principal); F14.20 Cocaine dependence, uncomplicated; F17.210 Nicotine dependence, cigarettes, uncomplicated; E78.5 Hyperlipidemia, unspecified; I11.0 Hypertensive heart disease with heart failure; I50.9 Heart failure, unspecified; I25.2 Old myocardial infarction; Z79.01 Long term (current) use of anticoagulants; R73.9 Hyperglycemia, unspecified; Z86.19 Personal history of other infectious and parasitic diseases; Z88.8 Allergy status to other drugs, medicaments and biological substances
CPT/HCPCS: 36415; 71045-TC-FY; 80053; 82962; 83036; 85027; 86593; 86780; 86803; 87389; 93005; 93010; C9803-CS; U0003; U0005

== ENCOUNTER 2025-05-19 15:47 | Inpatient (IN) | payer OTHER ==
[2025-05-19 16:40] VITALS: BMI 26.6
[2025-05-19] MEDS ORDERED: MAGNESIUM HYDROX 2400MG/30ML ORAL SUSPENSION 30 ML CUP PO PRN (19:02)
[2025-05-19] MEDS ORDERED: LOPERAMIDE HCL 2 MG CAPSULE PO PRN (19:02)
[2025-05-19] MEDS ORDERED: guaiFENesin 600 MG TABLET.ER (FP) PO PRN (19:02)
[2025-05-19] MEDS ORDERED: POLYETHYLENE GLYCOL (HEALTHYLAX) 3350 17 GM PACKET PO PRN (19:02)
[2025-05-19] MEDS ORDERED: MAG HYDROX/AL HYDROX/SIMETH 30 ML UNIT-DOSE CUP PO PRN (19:02)
[2025-05-19] MEDS ORDERED: BISMUTH SUBSALICYLATE 524 MG/30 ML PO PRN (19:02)
[2025-05-19] MEDS ORDERED: NALOXONE (NARCAN) HCL 4 MG/0.1 ML SPRAY NS PRN (19:02)
[2025-05-19] MEDS ORDERED: BENZOCAINE/MENTHOL (CHLORASEPTIC ) LOZENGE MM PRN (19:02)
[2025-05-19] MEDS ORDERED: DICYCLOMINE HCL 10 MG CAPSULE PO PRN (19:02)
[2025-05-19] MEDS ORDERED: IBUPROFEN 400 MG TABLET (FP) PO PRN (19:02)
[2025-05-19] MEDS ORDERED: ONDANSETRON *ODT* 4 MG TABLET SL PRN (19:02)
[2025-05-19] MEDS ORDERED: BENZONATATE 200 MG CAPSULE PO PRN (19:02)
[2025-05-19] MEDS: ATORVASTATIN CA 10 MG TABLET (FP) PO SCH (21:19)
[2025-05-19] MEDS: IBUPROFEN 600 MG TABLET (FP) PO PRN (21:19)
[2025-05-19] MEDS: THIAMINE 100 MG TABLET PO SCH (21:19)
[2025-05-19] MEDS: MELATONIN 5 MG TABLETS PO SCH (21:39)
[2025-05-19] MEDS: hydrOXYzine PAMOATE 25 MG CAPSULE (FP) PO PRN (23:42)
[2025-05-20] MEDS ORDERED: CARVEDILOL 12.5 MG TABLET (FP) PO SCH (10:00)
[2025-05-20] MEDS: PRENATAL VITAMINS W/ FOLIC ACID TABLET (FP) PO SCH (10:09)
[2025-05-20] MEDS: amLODIPine BESYLATE 10 MG TABLET (FP) PO SCH (10:09)
[2025-05-20] MEDS: ASPIRIN COATED 81 MG TABLET.EC PO SCH (10:09)
[2025-05-20 11:26] LABS: MCHC 33.9 g/dl (32.3-36.5); MEAN CELL VOLUME 93.5 fl (79.0-92.2); MEAN PLT VOLUME 11.3 fl (9.4-12.4); RDW 18.6 % (12.2-16.4)
[2025-05-20 17:15] LABS: CO2 30 mmol/L (21-32); GLUCOSE,RANDOM 104 mg/dL (74-106)
[2025-05-20 17:18] LABS: CREATININE 1.3 mg/dL (0.55-1.3); SGOT/AST 41 U/L (15-37); SGPT/ALT 28 U/L (13-61)
[2025-05-20 17:20] LABS: TOT PROT 6.3 g/dl (6.4-8.2)
[2025-05-20 17:21] LABS: ALK PHOS 62 U/L (45-117)
[2025-05-20] MEDS: TORSEMIDE 20 MG TABLET (FP) PO SCH (19:55)
[2025-05-20] MEDS: hydrALAZINE HCL 25 MG TABLET (FP) PO SCH (21:20)
[2025-05-20] MEDS: SACUBITRIL/VALSARTAN 24 MG-26 MG TABLET PO SCH (21:20)
[2025-05-20] MEDS ORDERED: SACUBITRIL/VALSARTAN 24 MG-26 MG TABLET PO SCH (22:00)
[2025-05-20] MEDS: SUVOREXANT 10 MG TABLET PO PRN (22:30)
[2025-05-21] MEDS: HYDROCHLOROTHIAZIDE 12.5 MG CAPSULE (FP) PO SCH (16:06)
[2025-05-21 18:04] LABS: HIV INTERPRETATION NEGATIVE (NEGATIVE)
[2025-05-21] MEDS: APIXABAN 5 MG TABLET PO SCH (21:40)
[2025-05-22] MEDS: METHOCARBAMOL 500 MG TABLET PO PRN (05:59)
[2025-05-22] MEDS: ACETAMINOPHEN 325 MG TABLET (FP) PO PRN (17:06)
[2025-05-23 08:36] VITALS: BP 129/87; PULSE 89; RESP 18; TEMP 97.6
== END 2025-05-23 09:41 | disposition home or self-care (01) | DRG 775 ==
LOC: YASAS 15:47 → Y6N 19:17
PROVIDERS: ADMIT Neuromusculoskeletal Medicine & OMM; ATTEND Allergy & Immunology
PROC: HZ2ZZZZ Detoxification Services for Substance Abuse Treatment (ICD-10-PCS; principal; 2025-05-19)
DX: F10.230 Alcohol dependence with withdrawal, uncomplicated (principal); E78.5 Hyperlipidemia, unspecified; F17.210 Nicotine dependence, cigarettes, uncomplicated; Y90.0 Blood alcohol level of less than 20 mg/100 ml; F41.9 Anxiety disorder, unspecified; I11.0 Hypertensive heart disease with heart failure; I50.9 Heart failure, unspecified
CPT/HCPCS: 36415; 71046-TC-FY; 80053; 80305; 80307; 83880; 85027; 86593; 86780; 87389; 93005; 93010